=== PATIENT | male | born 1990 | race Hispanic/Latino ===

== ENCOUNTER 2019-08-26 01:10 | Emergency (ER) | payer SELFPAY ==
[2019-08-26] MEDS ORDERED: TETANUS & DIPHTHERIA TOX,ADULT 0.5 ML VIAL ONE (01:31)
[2019-08-26] MEDS ORDERED: LIDOCAINE 1% MPF 5 ML VIAL ONE (01:31)
--- NOTE | 2019-08-26 02:15 | ER ---
Nurse's Notes 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 Coronavirus screen: Proceed with normal triage. Ebola Screen: No symptoms or risks identified at this time. Complicating Factors: There are no complicating factors for this patient. Risk Assessment: Do you want to hurt yourself or someone else? Patient reports no desire to harm self or others. Onset of symptoms was August 25, 2019 at 22:00. 01:19 Method Of Arrival: Wheelchair lp1 01:19 Acuity: NIMISHA 3 lp1 Historical: - Allergies: 01:21 No Known Allergies; lp1 - Home Meds: 01:21 None [Active]; lp1 - PMHx: 01:21 None; lp1 - PSHx: 01:21 None; lp1 - Immunization history:: Adult Immunizations up to date, Last tetanus immunization: unknown. Screenin:21 Abuse screen: Denies threats or abuse. Denies injuries from another. Nutritional lp1 screening: No deficits noted. Tuberculosis screening: No symptoms or risk factors identified. Fall Risk None identified. Assessment: 01:22 Injury Description: Laceration sustained to heel of left hand and inner aspect of left lp1 palm is 2.6 to 7.5 cm long, minimal bleeding. Vital Signs: 01:19 Weight 92.08 kg (R); Height 5 ft. 9 in. (175.26 cm); lp1 01:22 BP 142 / 70; Pulse 78; Resp 18; Temp 98.1; Pulse Ox 100% on R/A; ea 01:19 Body Mass Index 29.98 (92.08 kg, 175.26 cm) lp1 ED Course: 01:12 Patient arrived in ED. ag3 01:15 Brian Velazquez NP is PHCP. pm1 01:15 Rui Donovan MD is Attending Physician. pm1 01:21 Triage completed. lp1 01:21 Arm band placed on right wrist. lp1 01:32 Alvarado Aranda, RN is Primary Nurse. sg 01:41 Hand Left 3 View XRAY In Process Unspecified. EDMS Administered Medications: 01:32 Drug: Lidocaine (1 %) 5 ml {Note: medication administered by Brian Velazquez SMALL KICK PRESS OPERATOR.} sg Volume: 5 ml; Route: Infiltration; 01:40 Drug: Tetanus-Diphtheria Toxoid Adult 0.5 ml {Acid Plant Helper: [employer]. Exp: sg 06/29/2021. Lot #: [id number]. } Route: IM; Site: left deltoid; 02:13 Drug: Doxycycline 100 mg Route: PO; sg Outcome: 02:15 Discharge ordered by . pm1 02:26 Patient left the ED. sg Signatures: Dispatcher [employer] EDMS Alvarado Aranda, Mary Herrera RN, RN RN lp1 Brian Velazquez, K 9 HANDLER/ DEPUTY K 9 HANDLER/ DEPUTY pm1 Ana Munoz RN RN ea Gomez, Alice ag3 Corrections: (The following items were deleted from the chart) 01:43 01:40 Tetanus-Diphtheria Toxoid Adult 0.5 ml IM in left deltoid Acid Plant Helper: Personal ea Biologic Lot: [id number] Exp: 06/29/2021 ea
--- NOTE | 2019-08-26 02:16 | EDPHYS ---
Physician Documentation [facility] Name: Stuart Hernadez Age: 29 yrs Sex: Male : 1990 Arrival Date: 08/26/2019 Time: 01:12 Bed 19 Private MD: SOFI Physician Rui Donovan HPI: 08/25 01:37 This 29 yrs old Male presents to ER via Wheelchair with complaints of pm1 Laceration To Hand. 01:37 The patient has a laceration occurred outdoors. The laceration(s) is(are) located on pm1 the inner aspect of left palm. Onset: The symptoms/episode began/occurred today. Associated signs and symptoms: Pertinent negatives: deformity, numbness distal to injury, suspected foreign body. The patient has not experienced similar symptoms in the past. It is unknown whether or not the patient has recently seen a physician. Laceration to left hand while fishing. He was trying to cut the bobber off the string and cut his hand with his pocket knife. Historical: - Allergies: 01:21 No Known Allergies; lp1 - Home Meds: 01:21 None [Active]; lp1 - PMHx: 01:21 None; lp1 - PSHx: 01:21 None; lp1 - Immunization history:: Adult Immunizations up to date, Last tetanus immunization: unknown. ROS: 01:39 Constitutional: Negative for fever, chills, and weight loss, Cardiovascular: Negative pm1 for chest pain, palpitations, and edema, Respiratory: Negative for shortness of breath, cough, wheezing, and pleuritic chest pain, Abdomen/GI: Negative for abdominal pain, nausea, vomiting, diarrhea, and constipation, Back: Negative for injury and pain. 01:39 Neuro: Negative for headache, weakness, numbness, tingling, and seizure. 01:39 MS/extremity: Positive for laceration, of the heel of left hand, Negative for decreased range of motion, deformity, paresthesias. 01:39 Skin: Positive for laceration(s), of the heel of left hand. Exam: 01:39 Constitutional: This is a well developed, well nourished patient who is awake, alert, pm1 and in no acute distress. Head/Face: Normocephalic, atraumatic. Chest/axilla: Normal chest wall appearance and motion. Nontender with no deformity. No lesions are appreciated. Cardiovascular: Regular rate and rhythm with a normal S1 and S2. No gallops, murmurs, or rubs. No pulse deficits. Respiratory: Lungs have equal breath sounds bilaterally, clear to auscultation and percussion. No rales, rhonchi or wheezes noted. No increased work of breathing, no retractions or nasal flaring. Abdomen/GI: Soft, non-tender, with normal bowel sounds. No distension or tympany. No guarding or rebound. No evidence of tenderness throughout. Back: No spinal tenderness. No costovertebral tenderness. Full range of motion. 01:39 Musculoskeletal/extremity: Extremities: grossly normal except: noted in the heel of left hand: laceration, ROM: full active range of motion, in the right thumb, right index finger, right middle finger, right ring finger and right little finger. 01:39 Skin: Appearance: normal except for affected area, injury, laceration(s), the wound is approximately 5 cm(s), with a depth of 0.5 cm(s), of the heel of left hand, that can be described as clean, no foreign body, irregular, with mild bleeding. 01:39 Neuro: Orientation: is normal, Motor: is normal, moves all fours, Gait: is steady, at a normal pace, without difficulty. Vital Signs: 01:19 Weight 92.08 kg (R); Height 5 ft. 9 in. (175.26 cm); lp1 01:22 BP 142 / 70; Pulse 78; Resp 18; Temp 98.1; Pulse Ox 100% on R/A; ea 01:19 Body Mass Index 29.98 (92.08 kg, 175.26 cm) lp1 Laceration: 02:10 Wound Repair of 5cm ( 2.0in ) subcutaneous laceration to heel of left hand. Irregularly pm1 shaped.. Distal neuro/vascular/tendon intact. Anesthesia: Local anesthetic administered with 4 mls of 1% lidocaine. Wound prep: Extensive cleansing with betadine with hibiclenz by ut, Wound irrigation with saline by ut, Wound explored extensively, Copious irrigation. Skin closed with 9 4-0 Prolene using simple sutures and sterile technique. Dressed with Neosporin, 4x4's, Kerlix. Patient tolerated well. MDM: 01:15 Patient medically screened. pm1 02:09 Data reviewed: vital signs. Data interpreted: Pulse oximetry: on room air is 100 %. pm1 Interpretation: normal. Counseling: I had a detailed discussion with the patient and/or guardian regarding: the historical points, exam findings, and any diagnostic results supporting the discharge/admit diagnosis, radiology results, the need for outpatient follow up, Suture removal in 10-14 days, to return to the emergency department if symptoms worsen or persist or if there are any questions or concerns that arise at home. 02:11 ED course: Patient intends to work tomorrow because he just found a new job after pm1 getting laid off from the pandemic. His job involves machinery and heavy lifting. Explained to him that kind of work can cause issues with his laceration repair and his solution is to work with one hand. Recommended to him that it would be better to just take time until it his healed. 08/25 01:19 Order name: Hand Left 3 View XRAY; Complete Time: 15:30 pm1 08/25 01:19 Order name: Prolene, Sutures; Complete Time: 01:41 pm1 08/25 01:19 Order name: Dressing - Wound; Complete Time: 01:41 pm1 08/25 01:19 Order name: Gloves, Sterile; Complete Time: :41 pm1 08/25 01:19 Order name: Setup Suture Tray; Complete Time: 01:41 pm1 Administered Medications: 01:32 Drug: Lidocaine (1 %) 5 ml {Note: medication administered by Brian Velazquez [facility].} sg Volume: 5 ml; Route: Infiltration; 01:40 Drug: Tetanus-Diphtheria Toxoid Adult 0.5 ml {Foot Caster: [employer]. Exp: 06/29/2021. Lot #: [id number]. } Route: IM; Site: left deltoid; 02:13 Drug: Doxycycline 100 mg Route: PO; sg Disposition: 08/26/19 02:15 Discharged to Home. Impression: Laceration without foreign body of left hand. - Condition is Stable. - Discharge Instructions: Laceration Care, Adult. - Prescriptions for Doxycycline Hyclate 100 mg Oral Tablet - take 1 tablet by ORAL route every 12 hours; 20 tablet. - Work release form, Medication Reconciliation Form, Thank You Letter, Antibiotic Education, Prescription Opioid Use form. - Follow up: Emergency Department; When: As needed; Reason: Worsening of condition. Follow up: Private Physician; When: 10 - 14 days; Reason: Wound Recheck, Recheck today's complaints, Continuance of care, Staple/Suture removal, Re-evaluation by your physician. - Problem is new. - Symptoms have improved. Addendum: 08/27/2019 07:38 Co-signature as Attending Physician, Rui Donovan MD I agree with the assessment and c walker plan of care. Signatures: Dispatcher [employer] EDAlvarado Palencia RN Rui Duque MD MD cha Pena, Laura, RN RN lp1 Brian Velazquez, CAT HOOKER CAT HOOKER pm1 Ana Munoz RN RN ea Corrections: (The following items were deleted from the chart) 08/25 02:15 02:15 08/26/2019 02:15 Discharged to Home. Impression: Laceration without foreign body pm1 of left hand. Condition is Stable. Forms are Medication Reconciliation Form, Thank You Letter, Antibiotic Education, Prescription Opioid Use. Follow up: Emergency Department; When: As needed; Reason: Worsening of condition. Follow up: Private Physician; When: 2 - 3 days; Reason: Recheck today's complaints, Continuance of care, Re-evaluation by your physician. Problem is new. Symptoms have improved. pm1 02:26 02:15 08/26/2019 02:15 Discharged to Home. Impression: Laceration without foreign body sg of left hand. Condition is Stable. Discharge Instructions: Laceration Care, Adult. Prescriptions for Doxycycline Hyclate 100 mg Oral Tablet - take 1 tablet by ORAL route every 12 hours; 20 tablet. and Forms are Medication Reconciliation Form, Thank You Letter, Antibiotic Education, Prescription Opioid Use, Work release form. Follow up: Emergency Department; When: As needed; Reason: Worsening of condition. Follow up: Private Physician; When: 10 - 14 days; Reason: Wound Recheck, Recheck today's complaints, Continuance of care, Staple/Suture removal, Re-evaluation by your physician. Problem is new. Symptoms have improved. pm1
[2019-08-26] MEDS ORDERED: DOXYCYCLINE 100 MG CAP PO ONE (02:20)
[2019-08-26 02:31] VITALS: BP 142/70; TEMP 98.1; O2SAT 100
--- NOTE | 2019-08-26 11:21 | RAD REPORT ---
EXAM DESCRIPTION: RAD -Hand Left 3 View - 08/26/2019 1:41 am CLINICAL HISTORY: Left hand pain status post injury FINDINGS: No fracture or dislocation is seen. No radiopaque foreign body
== END 2019-08-26 02:26 | disposition home or self-care (01) ==
LOC: ER 01:10
PROC: 0JQK0ZZ Repair Left Hand Subcutaneous Tissue and Fascia, Open Approach (ICD-10-PCS; principal; 2019-08-26)
DX: S61.412A Laceration without foreign body of left hand, initial encounter (principal); W26.0XXA Contact with knife, initial encounter; Z23 Encounter for immunization
CPT/HCPCS: 90471; 90714; 99283

== ENCOUNTER 2021-11-16 10:40 | Emergency (ER) | payer SELFPAY ==
[2021-11-16 11:31] LABS: Absolute Lymphocytes (CBC) 1.3 K/uL (0.7-4.9); Hematocrit 45.5 % (39.6-49.0); Lymphocytes % 23.9 % (15.3-44.8); MCV 92.7 fL (80-100); MPV 6.8 fL (7.6-11.3); RBC Red Blood Cell Count 4.91 M/uL (4.33-5.43)
[2021-11-16 11:50] LABS: Bilirubin Total 0.6 mg/dL (0.2-1.0); Potassium 3.9 mmol/L (3.5-5.1); Protein, Total 6.8 g/dL (6.4-8.2)
--- NOTE | 2021-11-16 13:26 | RAD REPORT ---
EXAM DESCRIPTION: CT - Stone Protocol - 11/16/2021 12:56 pm CLINICAL HISTORY: Flank Pain COMPARISON: No comparisons TECHNIQUE: Axial 3 mm thick images were obtained without oral or IV contrast. The [id number] span s the entirety of the system including uppermost abdomen and lung bases. All CT scans are performed using dose optimization technique as appropriate and may include automated exposure control or mA/KV adjustment according to patient size. FINDINGS: No hydronephrosis is present in either collecting system. There is suggestion of a faint h yperdensity in the distal left ureter (image 129). This is of uncertain etiology. Density appears les s than usually seen with a calculus. A 1-2 mm nonobstructing lower pole calyx calcification noted on the left. No suspicious renal masses. Isodense masses and pyelonephritis are not excluded on a stone protocol CT scan. No significant adrenal finding. Contracted urinary bladder shows no suspicious find ing. No prostate gland or seminal vesicle abnormality. Imaged portions of the liver, spleen and pancreas show no suspicious findings on non-contrast imaging . No gallbladder or biliary tree abnormality identified. No suspicious bowel findings. Patient has very minimal left-sided diverticulosis without diverticulit is finding. Appendix is normal. No hernia identified. No mass or bulky lymphadenopathy. Patient does have a small 15 millimeter right side lymph node at the distal aspect of the external iliac cristel chain. No free air, free fluid or i nflammatory stranding. No acute bone process seen. Schmorl's node is seen in the inferior endplate L4. L5 pars defects are p resent with only very minimal 2 mm anterior subluxation of L5. IMPRESSION: No hydronephrosis present sensitive obstructing calculus identified. A very faint 1 mm density in the distal left ureter (density less than typical calculus) is potential ly a small calculus. The patient has a 1-2 mm lower pole calcification on the left. Isodense masses and pyelonephritis are not excluded on stone protocol technique. No acute GI process identified. Additional nonacute findings detailed in the body of the report.
[2021-11-16 13:57] LABS: Urine Blood Trace-intact (Negative); Urine Glucose Negative (Negative); Urine Protein Negative (Negative); Urine Specific Gravity 1.025 (1.005-1.030)
--- NOTE | 2021-11-16 14:51 | EDPHYS ---
Physician Documentation [facility] Name: Stuart Hernadez Age: 31 yrs Sex: Male : 1990 Arrival Date: 11/16/2021 Time: 10:51 Bed 12 Private MD: ED Physician Denver Wallace HPI: 11/16 10:54 This 31 yrs old Male presents to ER via Ambulatory with complaints of Flank jmm Pain. 14:49 The patient complains of pain in the left flank. The pain radiates. Onset: The jmm symptoms/episode began/occurred acutely, 3 day(s) ago. Modifying factors: The symptoms are alleviated by nothing. the symptoms are aggravated by nothing. Associated signs and symptoms: Pertinent negatives: fever. The patient has not experienced similar symptoms in the past. Historical: - Allergies: 10:57 No Known Allergies; walker - Home Meds: 10:57 Seroquel 10mg Oral 1 tab once daily [Active]; walker - PMHx: 10:57 Bipolar disorder; walekr - PSHx: 10:57 None; walker - Immunization history:: Adult Immunizations up to date. - Social history:: Smoking status: Reported history of juuling and/or vaping. ROS: 14:49 Constitutional: Negative for fever, chills, and weight loss, Cardiovascular: Negative jmm for chest pain, palpitations, and edema, Respiratory: Negative for shortness of breath, cough, wheezing, and pleuritic chest pain. 14:49 Abdomen/GI: Positive for abdominal pain. 14:49 Back: Positive for flank pain. 14:49 All other systems are negative. Exam: 14:49 Constitutional: This is a well developed, well nourished patient who is awake, alert, jmm and in no acute distress. Head/Face: atraumatic. Eyes: EOMI, no conjunctival erythema appreciated ENT: Moist Mucus Membranes Neck: Trachea midline, Supple Chest/axilla: Normal chest wall appearance and motion. Cardiovascular: Regular rate and rhythm. No edema appreciated Respiratory: Normal respirations, no respiratory distress appreciated Abdomen/GI: Non distended Back: Normal ROM Skin: General appearance color normal MS/ Extremity: Moves all extremities, no obvious deformities appreciated, no edema noted to the lower extremities Neuro: Awake and alert Psych: Behavior is normal, Mood is normal, Patient is cooperative and pleasant Vital Signs: 10:56 BP 140 / 97; Pulse 87; Resp 18; Temp 98.6(O); Pulse Ox 100% on R/A; Weight 89.36 kg; walker Height 5 ft. 9 in. (175.26 cm); 10:56 Body Mass Index 29.09 (89.36 kg, 175.26 cm) walker MDM: 11:04 Patient medically screened. [facility] 14:35 Data reviewed: vital signs, nurses notes. Counseling: I had a detailed discussion with [facility] the patient and/or guardian regarding: the historical points, exam findings, and any diagnostic results supporting the discharge/admit diagnosis, the need for outpatient follow up, to return to the emergency department if symptoms worsen or persist or if there are any questions or concerns that arise at home. 11/16 11:09 Order name: CBC with Diff; Complete Time: 12:[address] [facility] 11/16 11:09 Order name: CMP; Complete Time: 12:[address] [facility] 11/16 11:09 Order name: Lipase; Complete Time: 12:[address] [facility] 11/16 11:09 Order name: D-Dimer; Complete Time: 12:[address] [facility] 11/16 12:07 Order name: CT Stone Protocol; Complete Time: 13:[address] [facility] 11/16 13:57 Order name: Urine Dipstick-Ancillary; Complete Time: 14:00 [facility] 11/16 10:54 Order name: Urine Dipstick-Ancillary (obtain specimen); Complete Time: 13:[address] [facility] 11/16 11:09 Order name: IV Saline Lock; Complete Time: 11:[address] [facility] 11/16 11:09 Order name: Labs collected and sent; Complete Time: 11:[address] [facility] Administered Medications: No medications were administered Disposition: 15:29 Co-signature as Attending Physician, Denver Wallace MD I agree with the assessment and kdr plan of care. Disposition Summary: 11/16/21 14:50 Discharge Ordered Location: Home [facility] Condition: Stable [facility] Diagnosis - Calculus of the Ureter [facility] Followup: [facility] - With: Private Physician - When: 2 - 3 days - Reason: Recheck today's complaints, Continuance of care, Re-evaluation by your physician Discharge Instructions: - Discharge Summary Sheet [facility] - Kidney Stones [facility] - Dietary Guidelines to Help Prevent Kidney Stones [facility] Forms: - Medication Reconciliation Form jmm - Thank You Letter jmm - Antibiotic Education jmm - Prescription Opioid Use [facility] Signatures: Dispatcher [employer] Denver Wesley MD MD kdr Mickail, Joel, PA PA jmm Au-Stager, Heather, RN RN walker Corrections: (The following items were deleted from the chart) 10:58 10:57 Home Meds: None; walker walker 10:58 10:57 PMHx: None; walker walker
--- NOTE | 2021-11-16 14:51 | ER ---
Nurse's Notes [facility] Name: Stuart Hernadez Age: 31 yrs Sex: Male : 1990 Arrival Date: 11/16/2021 Time: 10:51 Bed 12 Private MD: Diagnosis: Calculus of the Ureter Presentation: 11/16 10:56 Chief complaint: Patient states: pt reports left flank pain x3days. Coronavirus screen: walker Vaccine status: Patient reports being unvaccinated. Ebola Screen: Patient denies travel to an Ebola-affected area in the 21 days before illness onset. Initial Sepsis Screen: Does the patient meet any 2 criteria? No. Patient's initial sepsis screen is negative. Does the patient have a suspected source of infection? No. Patient's initial sepsis screen is negative. Risk Assessment: Do you want to hurt yourself or someone else? Patient reports no desire to harm self or others. Onset of symptoms was November 13, 2021. 10:56 Method Of Arrival: Ambulatory walker 10:56 Acuity: NIMISHA 3 walker Triage Assessment: 10:57 General: Appears in no apparent distress. Behavior is calm, appropriate for age. Pain: walker Complains of pain in left mid back. Historical: - Allergies: 10:57 No Known Allergies; walker - Home Meds: 10:57 Seroquel 10mg Oral 1 tab once daily [Active]; walker - PMHx: 10:57 Bipolar disorder; walker - PSHx: 10:57 None; walker - Immunization history:: Adult Immunizations up to date. - Social history:: Smoking status: Reported history of juuling and/or vaping. Screenin:14 Abuse screen: Denies threats or abuse. Denies injuries from another. Nutritional iw screening: No deficits noted. Tuberculosis screening: No symptoms or risk factors identified. Fall Risk IV access (20 points). Assessment: 14:14 Reassessment: Patient appears in no apparent distress at this time. Patient and/or iw family updated on plan of care and expected duration. Pain level reassessed. Patient is alert, oriented x 3, equal unlabored respirations, skin warm/dry/pink. Vital Signs: 10:56 BP 140 / 97; Pulse 87; Resp 18; Temp 98.6(O); Pulse Ox 100% on R/A; Weight 89.36 kg; walker Height 5 ft. 9 in. (175.26 cm); 10:56 Body Mass Index 29.09 (89.36 kg, 175.26 cm) walker ED Course: 10:51 Patient arrived in ED. as 10:53 Andres Johnson PA is PHCP. [facility] 10:53 Denver Wallace MD is Attending Physician. [facility] 10:57 Triage completed. walker 11:04 Qing Fournier, RN is Primary Nurse. iw 11:17 Inserted saline lock: 20 gauge in right antecubital area, using aseptic technique. jw7 Blood collected. 11:28 Initial lab(s) drawn, by me, sent to lab. jw7 11:28 PO fluids given. jw7 12:58 CT Stone Protocol In Process Unspecified. EDMS 14:56 No provider procedures requiring assistance completed. IV discontinued, intact, iw bleeding controlled, No redness/swelling at site. Pressure dressing applied. 14:57 Arm band placed on. iw 14:57 Patient has correct armband on for positive identification. iw Administered Medications: No medications were administered Medication: 14:57 VIS not applicable for this client. iw Outcome: 14:50 Discharge ordered by . m 14:57 Discharged to home ambulatory. iw 14:57 Condition: good 14:57 Discharge instructions given to patient, Instructed on discharge instructions, follow up and referral plans. Demonstrated understanding of instructions, follow-up care. 14:57 Patient left the ED. iw Signatures: Dispatcher [employer] EDMS Andres Johnson PA PA jmm Martinez, Amelia as Qing Fournier, RN COCO Au-StagerKorina RN RN ha Waits, Jodi jw7 Corrections: (The following items were deleted from the chart) 10: 10:57 Home Meds: None; walker walker 10:58 10:57 PMHx: None; walker walker
[2021-11-16 15:26] VITALS: BP 140/97; TEMP 98.6; O2SAT 100
== END 2021-11-16 14:57 | disposition home or self-care (01) ==
LOC: ER 10:40
DX: N20.1 Calculus of ureter (principal); R10.9 Unspecified abdominal pain; R11.10 Vomiting, unspecified; F31.9 Bipolar disorder, unspecified
CPT/HCPCS: 36415; 74176; 76377; 80053; 81003; 83690; 85025; 85379; 99283

== ENCOUNTER 2022-04-19 22:03 | Emergency (ER) | payer SELFPAY ==
--- OUTSIDE RECORDS SUMMARY | 2022-04-19 22:07 | XMS REPORT | Continuity of Care Document ---
:1990 Author Organization [facility] t Address [address] [place] [address] Care Team Providers Name Role Phone Kishore FERMIN Attending Clinician Unavailable Payers Payer Name Policy Type Policy Number Effective Date Expiration Date S kellie [facility] [id number] 2019 00:00:00 Problems This patient has no known problems. Allergies, Adverse Reactions, Alerts Allergy Allergy Status Severity Reaction(s) Onset Inactive Treating Comm ents Source Name Type Date Date Clinician NO KNOWN Drug Active [facility] ALLERGIE Class [facility] Medications This patient has no known medications. Procedures This patient has no known procedures. Encounters Start End Encounter Admission Attending Care Care Encounter Source Date/Time Date/Time Type Type Clinicians Facility Department ID 2020-01-10 2020-01-10 Emergency T [facility] STR [id number] [facility] 19:40:00 19:40:00 [facility] 2020-01-10 2020-01-10 Emergency X Kishore FERMIN [facility] ERT [id number] [facility] 16:03:00 16:03:00 [facility] Results Test Description Test Time Test Comments Results Result Comments Source COMPREHENSIVE METABOLIC PANEL 2021-11-01 23:49:07 Test Item Value Reference Range Interpretation Comme nts GLUCOSE (test code = 2217) 94 MG/DL 70-99 BUN (test code = 2208) 13 MG/DL 6-20 CREATININE (test code = 0.84 MG/DL 0.80-1.40 2213) eGFR (2020 CKD-EPI) (test 120 ML/MIN/1.73 >60 code = 84474) CALC BUN/CREAT (test code = 15 RATIO 6-28 2234) SODIUM (test code = 2231) 142 MEQ/L 133-146 POTASSIUM (test code = 2228) 4.1 MEQ/L 3.5-5.4 CHLORIDE (test code = 2215) 104 MEQ/L 95-107 CARBON DIOXIDE (test code = 24 MEQ/L 2205) CALCIUM (test code = 2209) 10.0 MG/DL 8.5-10.5 PROTEIN, TOTAL (test code = 7.5 G/DL 6.1-8.3 2228) ALBUMIN (test code = 2201) 5.1 G/DL 3.5-5.2 CALC GLOBULIN (test code = 2.4 G/DL 1.9-3.7 2239) CALC A/G RATIO (test code = 2.1 RATIO 1.0-2.6 2233) BILIRUBIN, TOTAL (test code 1.4 MG/DL See_Comment H [Automated message] The = 2206) system which ge nerated this result transmit candelario reference range : <=1.2. The reference range was not used to interpr et this result as dariel l/abnormal. ALKALINE PHOSPHATASE (test 54 U/L 40-112 code = 2204) AST (test code = 2218) 15 U/L 9-50 ALT (test code = 2219) 24 U/L 5-50 LIPID [id number] 23:49:07 Test Item Value Reference Range Interpretation Comments CHOLESTEROL (test 181 MG/DL <200 code = 2210) TRIGLYCERIDES (test 202 MG/DL <150 H code = 2232) HDL CHOLESTEROL (test 35 MG/DL >39 L code = 2220) CALC LDL CHOL (test 114 MG/DL <100 H NOTE: C ALCULATED LDL code = 2237) IS BASED ON JESICA-OSMAN METHOD WHICHINCLUDES ADJUSTABLE TRIGLYCERIDE:VL DL CHOLESTEROL RAT IO.THIS FACTOR VARIES B Y MEASURED TRIGLY CERIDE AND NON-HDLCHOL ESTEROL CONCENTRATIONS WITH INCREASED CALCU LATED LDL SEENIN HIGH ER TRIGLYCERIDE OR LOWER NON-HDL SPECIME NS. FOR MOREINFORMATION , SEE CLIENT ANNOUNCE MENT AT [email or web address] RISK RATIO LDL/HDL 3.26 RATIO <3.55 UNLESS O THERWISE (test code = 2238) INDICATED , ALL TESTING PERFORMED [facility], [place]. [address] [facility] [place] [id number] [facility] DIRECTOR: DERIAN HARDING M.D. [facility] NUMBER [id number] [facility] [place]EDITATION N O. [id number] HEMOGLOBIN [id number] 04:19:34 Test Item Value Reference Range Interpretation Comments HEMOGLOBIN A1c (test code = 56367) 5.7 % 4.2-5.6 H
[2022-04-19] MEDS ORDERED: LIDOCAINE VISCOUS 2% SOLN 15 ML UDC ONE ×2 (23:46→23:55)
[2022-04-19] MEDS ORDERED: KETOROLAC 30 MG/ML INJ ONE ×2 (23:46→23:54)
[2022-04-19] MEDS ORDERED: ONDANSETRON 4 MG (ODT) TAB ONE ×2 (23:46→23:55)
[2022-04-19] MEDS ORDERED: MAGNES/ALUMIN/SIMET 30ML UCUP ONE ×2 (23:46→23:54)
[2022-04-20 00:06] LABS: Urine Blood Trace-intact (Negative); Urine Glucose Negative (Negative); Urine Protein Negative (Negative); Urine Specific Gravity >=1.030 (1.005-1.030)
[2022-04-20] MEDS ORDERED: ONDANSETRON 4 MG/2 ML VIAL ONE (00:08)
[2022-04-20] MEDS ORDERED: MORPHINE 4 MG/ML SYR ONE (00:19)
[2022-04-20 00:32] LABS: Absolute Lymphocytes (CBC) 0.8 K/uL (0.7-4.9); Hematocrit 42.1 % (39.6-49.0); Lymphocytes % 6.4 % (15.3-44.8); MCV 92.3 fL (80-100); MPV 6.9 fL (7.6-11.3); RBC Red Blood Cell Count 4.56 M/uL (4.33-5.43)
[2022-04-20 00:39] LABS: Calcium Oxalate Crystals- Ur Few /HPF (None Seen); Urine Mucus Slight /HPF (None Seen); Urine RBC <5 /HPF (None Seen)
[2022-04-20 00:52] LABS: Bilirubin Total 0.4 mg/dL (0.2-1.0); Protein, Total 7.2 g/dL (6.4-8.2)
[2022-04-20 00:55] LABS: Potassium 3.4 mmol/L (3.5-5.1)
--- NOTE | 2022-04-20 01:05 | EDPHYS ---
Physician Documentation [facility] Name: Stuart Hernadez Age: 32 yrs Sex: Male : 1990 Arrival Date: 04/19/2022 Time: 22:07 Bed 28 Private MD: ED Physician Archie Stoner HPI: 04/19 23:40 This 32 yrs old Male presents to ER via Ambulatory with complaints of rt Nausea/Vomiting, Abdominal Pain. 23:40 The patient presents to the emergency department with nausea, vomiting, abdominal pain. rt Onset: The symptoms/episode began/occurred 3 day(s) ago. Possible causes: unknown. The symptoms are aggravated by food , The symptoms are alleviated by nothing. Associated signs and symptoms: Pertinent positives: abdominal pain, Pertinent negatives: diarrhea, dysuria. Severity of symptoms: At their worst the symptoms were moderate. Presents to the ED with a upper abdominal pain for the past 3 days, worse after eating. Patient states that he has had nausea, vomiting. States the symptoms have worsened today, was unrelieved with Tylenol. Denies other acute complaints at this time, symptoms are aching nature, nonradiating, no other aggravating or alleviating factors. Historical: - Allergies: 22:34 No Known Allergies; kd3 - PMHx: 22:34 Bipolar disorder; kd3 - Immunization history:: Adult Immunizations up to date. - Social history:: Smoking status: Patient denies any tobacco usage or history of. ROS: 23:40 Constitutional: Negative for fever, chills, and weight loss, Eyes: Negative for injury, rt pain, redness, and discharge, ENT: Negative for injury, pain, and discharge, Neck: Negative for injury, pain, and swelling, Cardiovascular: Negative for chest pain, palpitations, and edema, Respiratory: Negative for shortness of breath, cough, wheezing, and pleuritic chest pain, MS/Extremity: Negative for injury and deformity, Skin: Negative for injury, rash, and discoloration, Neuro: Negative for headache, weakness, numbness, tingling, and seizure, Psych: Negative for depression, anxiety, suicide ideation, homicidal ideation, and hallucinations. 23:40 Abdomen/GI: Positive for abdominal pain, nausea and vomiting. Exam: 23:40 Constitutional: This is a well developed, well nourished patient who is awake, alert, rt and in no acute distress. Head/Face: Normocephalic, atraumatic. Eyes: Pupils equal round and reactive to light, extra-ocular motions intact. Lids and lashes normal. Conjunctiva and sclera are non-icteric and not injected. Cornea within normal limits. Periorbital areas with no swelling, redness, or edema. ENT: Nares patent. No nasal discharge, no septal abnormalities noted. Tympanic membranes are normal and external auditory canals are clear. Oropharynx with no redness, swelling, or masses, exudates, or evidence of obstruction, uvula midline. Mucous membranes moist. Chest/axilla: Normal chest wall appearance and motion. Nontender with no deformity. No lesions are appreciated. Cardiovascular: Regular rate and rhythm with a normal S1 and S2. No gallops, murmurs, or rubs. Normal PMI, no JVD. No pulse deficits. Respiratory: Lungs have equal breath sounds bilaterally, clear to auscultation and percussion. No rales, rhonchi or wheezes noted. No increased work of breathing, no retractions or nasal flaring. Skin: Warm, dry with normal turgor. Normal color with no rashes, no lesions, and no evidence of cellulitis. MS/ Extremity: Pulses equal, no cyanosis. Neurovascular intact. Full, normal range of motion. Neuro: Awake and alert, GCS 15, oriented to person, place, time, and situation. Cranial nerves II-XII grossly intact. Motor strength 5/5 in all extremities. Sensory grossly intact. Cerebellar exam normal. Normal gait. Psych: Awake, alert, with orientation to person, place and time. Behavior, mood, and affect are within normal limits. 23:40 Abdomen/GI: Tenderness the right upper quadrant and epigastrium without rebound, guarding, distention.. Vital Signs: 22:29 BP 125 / 87; Pulse 89; Resp 17; Temp 98.4(O); Pulse Ox 100% on R/A; Weight 90.72 kg; kd3 Height 5 ft. 9 in. (175.26 cm); Pain 10/10; 12/06 00:35 BP 146 / 97; Pulse 89; Resp 20 S; Pulse Ox 99% ; bb 01:23 BP 122 / 87; Pulse 100; Resp 16 S; Temp 97.5(O); Pulse Ox 96% on R/A; bb 04/19 22:29 Body Mass Index 29.53 (90.72 kg, 175.26 cm) kd3 MDM: 04/19 23:20 Patient medically screened. rt 04/20 01:06 Differential diagnosis: Nonspecific abd pain, cholecystitis, pancreatitis, rt appendicitis, diverticulitis. Data reviewed: vital signs, nurses notes, lab test result(s), radiologic studies. ED course: Patient presents to the ED with an upper to right upper quadrant pain starting about 3 days ago, worsening today. The patient has no focal right lower quadrant tenderness to suggest an acute appendicitis. He is found to have a cholelithiasis. There is no hyperbilirubinemia, elevated LFTs, I do not suspect choledocholithiasis. The patient has no evidence of cholecystitis on the ultrasound. Pain is well controlled with treatment in the ED. I discussed dietary changes as well as outpatient follow-up with surgeon and return precautions with the patient, he is stable for outpatient care, return precautions discussed.. 04/19 23:12 Order name: CBC with Diff; Complete Time: 00:55 rt 04/19 23:12 Order name: CMP; Complete Time: 00:57 rt 04/19 23:12 Order name: Lipase; Complete Time: 00:57 rt 04/19 23:12 Order name: UA MICROSCOPIC; Complete Time: 00:55 rt 04/19 23:12 Order name: US Abdomen Limited rt 04/20 00:06 Order name: Urine Dipstick-Ancillary; Complete Time: 00:34 EDMS 04/19 23:12 Order name: Urine Dipstick-Ancillary (obtain specimen); Complete Time: 00:08 rt Administered Medications: 04/19 23:55 Drug: GI Cocktail without - (Maalox Suspension 30 ml, Lidocaine Liquid 2 % 15 bb ml) Route: PO; 04/20 00:22 Follow up: Response: No change in condition bb 04/19 23:59 Not Given (Other Intervention Used): Ketorolac 30 mg IM once bb 23:59 Not Given (Other Intervention Used): Zofran (Ondansetron) 4 mg PO once bb 04/20 00:01 Drug: Ketorolac 30 mg Route: IVP; Site: right forearm; bb 00:22 Follow up: Response: No change in condition; Pain is unchanged, physician notified bb 00:07 Drug: Zofran (Ondansetron) 4 mg Route: IVP; Site: right forearm; bb 00:22 Follow up: Response: No adverse reaction bb 00:22 Drug: morphine 4 mg Route: IVP; Infused Over: 4 mins; Site: right forearm; bb 01:25 Follow up: Response: Marked relief of symptoms; Pain is decreased bb Disposition Summary: 04/20/22 01:05 Discharge Ordered Location: Home rt Problem: new rt Symptoms: have improved rt Condition: Stable rt Diagnosis - Other cholelithiasis without obstruction rt Followup: rt - With: Karlos Skelton MD - When: 5 - 6 days - Reason: Discharge Instructions: - Discharge Summary Sheet rt - Cholelithiasis, [id number] rt Forms: - Medication Reconciliation Form rt - Thank You Letter rt - Antibiotic Education rt - Prescription Opioid Use rt Prescriptions: - Zofran 4 mg Oral Tablet - take 1 tablet by ORAL route every 6 hours As needed; 20 tablet; Refills: 0, rt Product Selection Permitted - Tylenol-Codeine #3 300 mg-30 mg Oral - take 1 tablet by ORAL route every 6 hours; 18 tablet; Refills: 0, Product rt Selection Permitted Signatures: Dispatcher [employer] Sosa Vasquez RN RN Rand Sosa RN RN kd3 Archie Stoner MD MD rt
--- NOTE | 2022-04-20 01:05 | ER ---
Nurse's Notes [facility] Name: Stuart Hernadez Age: 32 yrs Sex: Male : 1990 Arrival Date: 04/19/2022 Time: 22:07 Bed 28 Private MD: Diagnosis: Other cholelithiasis without obstruction Presentation: 04/19 22:29 Chief complaint:. Chief complaint: Patient states: I have been having some pain at my kd3 diaphragm, I have been vomiting a lot and have had a cough and congestion. The pain in my upper abdomen has gotten very painful. I threw up about 5 minutes ago. Coronavirus screen: Vaccine status: Patient reports receiving the 2nd dose of the covid vaccine. Ebola Screen: No symptoms or risks identified at this time. Initial Sepsis Screen: Does the patient meet any 2 criteria? No. Patient's initial sepsis screen is negative. Does the patient have a suspected source of infection? No. Patient's initial sepsis screen is negative. Risk Assessment: Do you want to hurt yourself or someone else? Patient reports no desire to harm self or others. Onset of symptoms was April 19, 2022. 22:29 Method Of Arrival: Ambulatory kd3 22:29 Acuity: NIMISHA 3 kd3 22:36 Chief complaint: Patient states: I have not eaten anything new and have not been in kd3 contact with anyone else who has been sick. Triage Assessment: 22:34 General: Appears uncomfortable, Behavior is calm, cooperative. Pain: Complains of pain kd3 in diaphragm. Neuro: Level of Consciousness is awake, alert, obeys commands, Oriented to person, place, time, situation. Cardiovascular: Capillary refill < 3 seconds in bilateral fingers Patient's skin is warm and dry. Respiratory: Airway is patent Trachea midline Respiratory effort is even, unlabored, Respiratory pattern is regular, symmetrical. GI: Reports diarrhea, nausea, vomiting. Historical: - Allergies: 22:34 No Known Allergies; kd3 - PMHx: 22:34 Bipolar disorder; kd3 - Immunization history:: Adult Immunizations up to date. - Social history:: Smoking status: Patient denies any tobacco usage or history of. Screenin:36 Abuse screen: Denies threats or abuse. Denies injuries from another. Nutritional kd3 screening: No deficits noted. Tuberculosis screening: No symptoms or risk factors identified. Fall Risk None identified. Assessment: 04/20 00:10 General: Appears uncomfortable, Behavior is anxious. Pain: Complains of pain in bb epigastric area Pain currently is 8 out of 10 on a pain scale. Neuro: Level of Consciousness is awake, alert, obeys commands, Oriented to person, place, time, situation. Cardiovascular: Capillary refill < 3 seconds Patient's skin is warm and dry. Respiratory: Respiratory effort is unlabored. GI: Abdomen is non-distended, Reports upper abdominal pain. Derm: Skin is pink, warm \T\ dry. Musculoskeletal: Circulation, motion, and sensation intact. 00:23 Reassessment: pt writhing in pain Dr Stoner unavailable notified Rui ROMAN new bb orders received pt medicated see JUL. 01:23 Reassessment: Patient is alert, oriented x 3, equal unlabored respirations, skin bb warm/dry/pink. Patient states feeling better. Patient states symptoms have improved. pt verbalized understanding of and agrees to plan of care discharge instructions given pt ambulated with steady gait to exit accompanied by family. Vital Signs: 04/19 22:29 BP 125 / 87; Pulse 89; Resp 17; Temp 98.4(O); Pulse Ox 100% on R/A; Weight 90.72 kg; kd3 Height 5 ft. 9 in. (175.26 cm); Pain 10/10; 1206 00:35 BP 146 / 97; Pulse 89; Resp 20 S; Pulse Ox 99% ; bb 01:23 BP 122 / 87; Pulse 100; Resp 16 S; Temp 97.5(O); Pulse Ox 96% on R/A; bb 12 22:29 Body Mass Index 29.53 (90.72 kg, 175.26 cm) kd3 ED Course: 04/19 22:07 Patient arrived in ED. jj6 22:34 Triage completed. kd3 22:34 Arm band placed on right wrist. kd3 22:36 Patient has correct armband on for positive identification. kd3 22:36 No provider procedures requiring assistance completed. kd3 23:07 Archie Stoner MD is Attending Physician. rt 23:34 US Abdomen Limited In Process Unspecified. EDMS 04/20 00:00 Inserted saline lock: 20 gauge in right forearm, using aseptic technique. em6 00:08 UA MICROSCOPIC Sent. em6 00:08 Lipase Sent. em6 00:08 CMP Sent. em6 00:08 CBC with Diff Sent. em6 00:10 Sosa Cole, RN is Primary Nurse. bb 01:04 Karlos Skelton MD is Referral Physician. rt 01:25 IV discontinued, intact, bleeding controlled, No redness/swelling at site. Pressure bb dressing applied. Administered Medications: 04/19 23:55 Drug: GI Cocktail without - (Maalox Suspension 30 ml, Lidocaine Liquid 2 % 15 bb ml) Route: PO; 04/20 00:22 Follow up: Response: No change in condition bb 04/19 23:59 Not Given (Other Intervention Used): Ketorolac 30 mg IM once bb 23:59 Not Given (Other Intervention Used): Zofran (Ondansetron) 4 mg PO once bb 04/20 00:01 Drug: Ketorolac 30 mg Route: IVP; Site: right forearm; bb 00:22 Follow up: Response: No change in condition; Pain is unchanged, physician notified bb 00:07 Drug: Zofran (Ondansetron) 4 mg Route: IVP; Site: right forearm; bb 00:22 Follow up: Response: No adverse reaction bb 00:22 Drug: morphine 4 mg Route: IVP; Infused Over: 4 mins; Site: right forearm; bb 01:25 Follow up: Response: Marked relief of symptoms; Pain is decreased bb Medication: 04/19 22:37 VIS not applicable for this client. kd3 Outcome: 04/20 01:05 Discharge ordered by . rt 01:25 Discharged to home ambulatory, with family. bb 01:25 Condition: stable 01:25 Discharge instructions given to patient, Instructed on discharge instructions, follow up and referral plans. no driving heavy equipment, medication usage, Demonstrated understanding of instructions, follow-up care, medications, Prescriptions given X 2. 01:26 Patient left the ED. bb Signatures: Dispatcher [employer] EDMS Sosa Cole, RN RN bb Katia Pettit jj6 Rand Sy RN RN kd3 Carolyn Yu RN RN em6 Archie Stoner MD MD rt
[2022-04-20 04:55] VITALS: BP 122/87; TEMP 97.5; O2SAT 96
--- NOTE | 2022-04-20 16:53 | RAD REPORT ---
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 TECHNIQUE: Utilizing a curved array transducer, real-time ultrasound evaluation of the abdominal vis cera was performed. Color Doppler imaging was used to assess vascular flow. FINDINGS: The liver, kidney, pancreas and retroperitoneum was not imaged. The gallbladder demonstrate presence of mobile echogenic structure with posterior shadowing at the le tamera of the gallbladder neck corresponding to cholelithiasis. No gallbladder stones were seen. No pericholecystic fluid and or wall thickening was identified. There is negative ultrasonographic Elaine y sign. The common bile duct measures 3.5 mm. No intra or extrahepatic biliary duct dilatation was identified. No significant free fluid within the upper abdomen. IMPRESSION: Cholelithiasis without sonographic evidence of acute cholecystitis. Electronically signed by: Duncan Retana MD 04/20/2022 12:12 AM MACHINING SUPERVISOR Due to temporary technical issues with the PACS/Fluency reporting system, reports are being signed by the in house radiologists without review as a courtesy to insure prompt reporting. The interpreting radiologist is fully responsible for the content of the report.
== END 2022-04-20 01:26 | disposition home or self-care (01) ==
LOC: ER 22:03
DX: K80.80 Other cholelithiasis without obstruction (principal)
CPT/HCPCS: 36415; 76705; 80053; 81003; 81015; 83690; 85025; 96374; 96375; 99284; J2405; Q0162